=== PATIENT | male | born 1990 | race Caucasian/White ===

== ENCOUNTER 2020-05-15 09:39 | Emergency (ER) | payer OTHER ==
[2020-05-15] MEDS ORDERED: Boostrix 0.5 ML (Tdap) VIAL ONE (09:58)
[2020-05-15] MEDS ORDERED: Lidocaine 1% (PF) 30 ML VIAL ONE (09:58)
[2020-05-15] MEDS ORDERED: Bacitracin 1 PK ONE (10:18)
== END 2020-05-15 10:30 | disposition home or self-care (01) ==
LOC: NAV ERS 09:39
DX: S61.412A Laceration without foreign body of left hand, initial encounter (principal); W26.8XXA Contact with other sharp object(s), not elsewhere classified, initial encounter; Y99.0 Civilian activity done for income or pay; Z23 Encounter for immunization
CPT/HCPCS: 12001; 90471; 90715; J2001